=== PATIENT | male | born 1955 | race Caucasian/White ===

== ENCOUNTER → 2016-04-23 20:13 | Outpatient (CLI) | payer BC | END | disposition home or self-care (01) | LOC: D.SLEEP 04-21 20:00 | DX: G47.33 Obstructive sleep apnea (adult) (pediatric) (principal) ==

== ENCOUNTER → 2016-04-27 19:53 | Outpatient (CLI) | payer BC | END | disposition home or self-care (01) | LOC: D.SLEEP 19:53 | DX: G47.33 Obstructive sleep apnea (adult) (pediatric) (principal) ==

== ENCOUNTER 2016-05-02 07:13 | Emergency (ER) | payer BC ==
[2016-05-02 08:01] LABS: BASOPHILS 1.2 % (0.0-2.0); EOSINOPHILS 4.4 % (0-7); HEMATOCRIT 42.7 % (42.0-54.0); HEMOGLOBIN 14.8 g/dL (13.5-17.5); IMMATURE GRANULOCYTES 0.2 % (0-5); LYMPHOCYTES 23.7 % (15-50); MCH 30.5 pg (26.0-34.0); MCHC 34.7 g/dL (31.0-37.0); MCV 87.9 fL (80.0-100.0); MEAN PLATELET VOLUME 9.9 fL (7.4-10.4); MONOCYTES 6.1 % (2-11); NEUTROPHILS 64.4 % (40-80); PLATELET COUNT 170 10x3/uL (130-400); RBC 4.86 10x6/uL (4.20-6.10); RDW 12.9 % (11.5-14.5); WBC 4.3 10x3/uL (4.8-10.8)
[2016-05-02 08:28] LABS: ALBUMIN 3.6 g/dL (3.4-5.0); ALKALINE PHOSPHATASE 44 U/L (46-116); ALT (SGPT) 38 U/L (10-68); CALC OSMOLALITY 274 mosm/kg (275-300); CALCIUM 8.5 mg/dL (8.5-10.1); CARBON DIOXIDE 25.3 mmol/L (21.0-32.0); CHLORIDE - SERUM 102 mmol/L (98-107); CREATININE - SERUM 0.8 mg/dL (0.6-1.3); GLUCOSE 118 mg/dL (74-106); PROTEIN - SERUM 6.6 g/dL (6.4-8.2); SODIUM 136 mmol/L (136-145); UREA NITROGEN 17 mg/dL (7-18); eGFR NON AFRICAN AMERICAN > 90 mL/min (90-120)
[2016-05-02 08:38] LABS: CKMB 0.7 U/L (0.0-3.6); CREATINE KINASE 56 UL (21-232); TROPONIN-I < 0.017 ng/mL (0.000-0.060)
== END 2016-05-02 08:47 | disposition home or self-care (01) ==
LOC: D.ER 07:13
PROVIDERS: Emergency Medicine
DX: I49.9 Cardiac arrhythmia, unspecified (principal); G47.30 Sleep apnea, unspecified; I10 Essential (primary) hypertension

== ENCOUNTER 2016-05-06 14:54 | Emergency (ER) | payer BC | END 2016-05-06 16:25 | disposition home or self-care (01) | LOC: D.ER 14:54 | DX: R07.89 Other chest pain (principal); R00.2 Palpitations; I10 Essential (primary) hypertension; G47.33 Obstructive sleep apnea (adult) (pediatric); R07.9 Chest pain, unspecified ==

== ENCOUNTER 2016-07-08 05:38 | Emergency (ER) | payer BC ==
[2016-07-08 06:00] LABS: BASOPHILS 0.6 % (0.0-2.0); EOSINOPHILS 4.5 % (0-7); HEMATOCRIT 46.8 % (42.0-54.0); HEMOGLOBIN 16.2 g/dL (13.5-17.5); IMMATURE GRANULOCYTES 0.4 % (0-5); LYMPHOCYTES 29.6 % (15-50); MCH 30.5 pg (26.0-34.0); MCHC 34.6 g/dL (31.0-37.0); MCV 88.1 fL (80.0-100.0); MEAN PLATELET VOLUME 10.2 fL (7.4-10.4); MONOCYTES 5.9 % (2-11); PLATELET COUNT 151 10x3/uL (130-400); RBC 5.31 10x6/uL (4.20-6.10); RDW 13.8 % (11.5-14.5); WBC 4.9 10x3/uL (4.8-10.8)
[2016-07-08 06:36] LABS: ALBUMIN 3.9 g/dL (3.4-5.0); ALKALINE PHOSPHATASE 66 U/L (46-116); ALT (SGPT) 48 U/L (10-68); BILIRUBIN - TOTAL 0.64 mg/dL (0.2-1.3); CALC OSMOLALITY 282 mosm/kg (275-300); CALCIUM 8.4 mg/dL (8.5-10.1); CARBON DIOXIDE 26.2 mmol/L (21.0-32.0); CHLORIDE - SERUM 102 mmol/L (98-107); CREATINE KINASE 134 UL (21-232); CREATININE - SERUM 0.8 mg/dL (0.6-1.3); GLUCOSE 163 mg/dL (74-106); MAGNESIUM - SERUM 2.1 mg/dL (1.8-2.4); POTASSIUM - SERUM 4.2 mmol/L (3.5-5.1); PROTEIN - SERUM 7.7 g/dL (6.4-8.2); SODIUM 138 mmol/L (136-145); T4 THYROXINE 5.3 ug/dL (4.7-13.3); THYROID STIMULATING HORMONE 2.36 uIU/mL (0.36-3.74); UREA NITROGEN 22 mg/dL (7-18); eGFR NON AFRICAN AMERICAN > 90 mL/min (90-120)
[2016-07-08 06:39] LABS: TROPONIN-I < 0.017 ng/mL (0.000-0.060)
== END 2016-07-08 07:07 | disposition home or self-care (01) ==
LOC: D.ER 05:38
PROVIDERS: Emergency Medicine
DX: R00.2 Palpitations (principal); I10 Essential (primary) hypertension; G47.33 Obstructive sleep apnea (adult) (pediatric); I48.91 Unspecified atrial fibrillation

== ENCOUNTER 2016-10-24 02:37 | Emergency (ER) | payer BC ==
[2016-10-24 03:01] LABS: EOSINOPHILS 2.5 % (0-7); HEMATOCRIT 44.2 % (42.0-54.0); HEMOGLOBIN 15.2 g/dL (13.5-17.5); IMMATURE GRANULOCYTES 0.6 % (0-5); LYMPHOCYTES 33.1 % (15-50); MCH 30.3 pg (26.0-34.0); MCHC 34.4 g/dL (31.0-37.0); MCV 88.2 fL (80.0-100.0); MEAN PLATELET VOLUME 9.9 fL (7.4-10.4); MONOCYTES 9.7 % (2-11); NEUTROPHILS 53.1 % (40-80); PLATELET COUNT 147 10x3/uL (130-400); RBC 5.01 10x6/uL (4.20-6.10); RDW 13.4 % (11.5-14.5); WBC 5.1 10x3/uL (4.8-10.8)
[2016-10-24 03:18] LABS: ALBUMIN 3.7 g/dL (3.4-5.0); ALKALINE PHOSPHATASE 54 U/L (46-116); ALT (SGPT) 42 U/L (10-68); BILIRUBIN - TOTAL 0.54 mg/dL (0.2-1.3); CALC OSMOLALITY 279 mosm/kg (275-300); CALCIUM 8.4 mg/dL (8.5-10.1); CARBON DIOXIDE 26.6 mmol/L (21.0-32.0); CHLORIDE - SERUM 102 mmol/L (98-107); CREATININE - SERUM 0.7 mg/dL (0.6-1.3); POTASSIUM - SERUM 4.1 mmol/L (3.5-5.1); PROTEIN - SERUM 7.2 g/dL (6.4-8.2); SODIUM 138 mmol/L (136-145); UREA NITROGEN 25 mg/dL (7-18); eGFR NON AFRICAN AMERICAN > 90 mL/min (90-120)
[2016-10-24 03:21] LABS: GLUCOSE 106 mg/dL (74-106)
[2016-10-24 03:24] LABS: MAGNESIUM - SERUM 2.2 mg/dL (1.8-2.4)
[2016-10-24 03:30] LABS: CHOLESTEROL, TOTAL 190 mg/dL (0-200); CKMB 1.1 U/L (0.0-3.6); CREATINE KINASE 134 UL (21-232); HDL CHOLESTEROL 48 mg/dL (32-96); LDL CHOLESTEROL 124 mg/dL (0-100); LDL-HDL RATIO 2.6 ratio (1.5-3.5); TRIGLYCERIDE 90 mg/dL (30-200); TROPONIN-I < 0.017 ng/mL (0.000-0.060)
[2016-10-24 03:50] LABS: APPEARANCE CLEAR (CLEAR); BILIRUBIN NEGATIVE (NEGATIVE); COLOR YELLOW (YELLOW); GLUCOSE NEGATIVE (NEGATIVE); KETONE NEGATIVE (NEGATIVE); LEUKOCYTE ESTERASE NEGATIVE (NEGATIVE); NITRITE NEGATIVE (NEGATIVE); PROTEIN NEGATIVE (NEGATIVE); SPECIFIC GRAVITY 1.005 (1.005-1.020); UROBILINOGEN NORMAL (NORMAL)
== END 2016-10-24 06:00 | disposition home or self-care (01) ==
LOC: D.ER 02:37
PROVIDERS: Emergency Medicine
DX: R10.9 Unspecified abdominal pain (principal); N28.1 Cyst of kidney, acquired; I10 Essential (primary) hypertension; G47.30 Sleep apnea, unspecified

== ENCOUNTER 2017-03-11 03:12 | Emergency (ER) | payer BC ==
[2017-03-11 04:13] LABS: CREATINE KINASE 156 UL (21-232); TROPONIN-I < 0.017 ng/mL (0.000-0.060)
[2017-03-11 04:46] LABS: BASOPHILS 0.6 % (0-2); EOSINOPHILS 3.1 % (0-7); HEMATOCRIT 45.3 % (42.0-54.0); HEMOGLOBIN 15.8 g/dL (13.5-17.5); IMMATURE GRANULOCYTES 0.4 % (0-5); LYMPHOCYTES 27.5 % (15-50); MCH 30.6 pg (26.0-34.0); MCHC 34.9 g/dL (31.0-37.0); MCV 87.8 fL (80.0-100.0); MEAN PLATELET VOLUME 10.1 fL (7.4-10.4); NEUTROPHILS 59.4 % (40-80); PLATELET COUNT 175 10x3/uL (130-400); RBC 5.16 10x6/uL (4.20-6.10); RDW 13.1 % (11.5-14.5); WBC 5.4 10x3/uL (4.8-10.8)
[2017-03-11 04:50] LABS: ALBUMIN 3.9 g/dL (3.4-5.0); ALKALINE PHOSPHATASE 52 U/L (46-116); ALT (SGPT) 43 U/L (10-68); BILIRUBIN - TOTAL 0.42 mg/dL (0.2-1.3); CALC OSMOLALITY 281 mosm/kg (275-300); CALCIUM 8.6 mg/dL (8.5-10.1); CARBON DIOXIDE 29.8 mmol/L (21.0-32.0); CHLORIDE - SERUM 101 mmol/L (98-107); CREATININE - SERUM 0.9 mg/dL (0.6-1.3); GLUCOSE 108 mg/dL (74-106); PROTEIN - SERUM 7.2 g/dL (6.4-8.2); SODIUM 139 mmol/L (136-145); UREA NITROGEN 21 mg/dL (7-18); eGFR NON AFRICAN AMERICAN > 90 mL/min (90-120)
== END 2017-03-11 05:24 | disposition home or self-care (01) ==
LOC: D.ER 03:12
PROVIDERS: Emergency Medicine
DX: R00.2 Palpitations (principal); I10 Essential (primary) hypertension

== ENCOUNTER → 2017-04-02 08:33 | Outpatient (CLI) | payer BC | END | disposition home or self-care (01) | LOC: D.RAD 03-26 08:00 | DX: K59.00 Constipation, unspecified (principal) ==

== ENCOUNTER → 2017-10-25 08:37 | Outpatient (CLI) | payer BC | END | disposition home or self-care (01) | LOC: D.US 08:37 | DX: R10.816 Epigastric abdominal tenderness (principal) ==

== ENCOUNTER 2018-01-30 18:59 | Emergency (ER) | payer BC ==
[~2018-01-30] VITALS: Ht 177.8 cm; Wt 95.3 kg
[2018-01-30 19:24] VITALS: Ht 177.8 cm; Wt 95.3 kg
[2018-01-30] MEDS ORDERED: MICARDIS80 MG PO (19:25)
[2018-01-30] MEDS ORDERED: CATAPRES0.2 MG PO (19:25)
[2018-01-30] MEDS ORDERED: TOPROL XL25 MG PO (19:25)
[2018-01-30] MEDS ORDERED: COREG 3.1253.125 MG (19:25)
[2018-01-30] MEDS ORDERED: NITROQUICK0.4 MG SL (19:25)
[2018-01-30] MEDS ORDERED: ASPIRIN81 MG PO (19:25)
[2018-01-30] MEDS ORDERED: LYRICA75 MG PO (19:26)
[2018-01-30] MEDS ORDERED: TORADOL10 MG PO (20:08)
[2018-01-30 21:17] VITALS: BP 160/87
== END 2018-01-30 21:18 | disposition home or self-care (01) ==
LOC: D.ER 18:59
DX: S49.91XA Unspecified injury of right shoulder and upper arm, initial encounter (principal); W18.31XA Fall on same level due to stepping on an object, initial encounter; Y93.89 Activity, other specified; Y92.89 Other specified places as the place of occurrence of the external cause

== ENCOUNTER 2018-04-18 22:35 | Observation (INO) | payer BC ==
[~2018-04-18] VITALS: Ht 177.8 cm; Wt 95.5 kg
--- NOTE | ~2018-04-18 | HEMODYNAMI ---
PATIENT:DAISY ROCKWELL MEDICAL RECORD: [id number] : 59 LOCATION:[facility] ADMISSION DATE: 04/19/18 Generatedon:04/19/201812:20 Patient name: DAISY ROCKWELL Patient #: [id number] SSN: : 1955 Date of study: 04/19/2018 Page: Of Hemodynamic Procedure Report Patient Data Patient Demographics Procedure consent was obtained First Name: DAISY Gender: Male Last Name: MOIZ : 1955 Middle Initial: RAY Age: 62 year(s) Patient #: [id number] Race: Unknown Additional ID: [id number] Contact details [address]: [address] [place] [address] State: [place] City: [place] Zip code: [address] Past Medical History Allergies Allergen Reaction Date Comments Reported Statins 04/19/2018 Admission Admission Data Admission Date: 04/19/2018 Admission Time: 2:13 Room #: [facility] Lab Results Lab Result Date: 04/19/2018 Lab Result Time: 0:00 Biochemistry Name Units Result Min Max BUN mg/dl 20 --(----)*- 7 18 Creatinine mg/dl 0.8 --(-*--)-- 0.6 1.3 CBC Name Units Result Min Max Hemoglobin g/dl 16.4 --(--*-)-- 13.5 17.5 Procedure Procedure Types Cath Procedure Diagnostic Procedure LHC LHC w/Coronaries Procedure Description Procedure Date Procedure Date: 04/19/2018 Procedure Start Time: 12:06 Procedure End Time: 12:15 Procedure Staff Name Function Roslyn Jose RT Scrub Brant Melendez RN Nurse Sven Nino MD Performing Physician Lonny Ambrose RT Monitor Procedure Data Cath Procedure Fluoroscopy Diagnostic fluoroscopy Total fluoroscopy Time: 1.7 time: 1.7 min min Diagnostic fluoroscopy Total fluoroscopy dose: dose: 211.99 mGy 211.99 mGy Contrast Material Contrast Material Type Amount (ml) Isovue 300 50 Entry Location Entry Primary Successful Side Size Upsize Upsize Entry Closure López ccessful Closure Location (Fr) 1 (Fr) 2 (Fr) Remarks Device Remarks Radial Right 6 Fr Mechanical artery Short Compression Diagnostic catheters Device Type Used For End Catheter Placement DIAGNOSTIC Orange 110cm 5 LV Angiography Fr catheter ([id number]) Procedure Complications No complications Procedure Medications Medication Administration Route Dosage Oxygen etCO2 Nasal cannula 2 l/min Lidocaine 2% added to field 20 Heparin Flush Bag added to field 2 bags (1000units/500ml NS) 0.9% NaCl I.V. 100 ml/hr Radial Cocktail I.A. 1 syringe (Verapomil 2mg/Nitro 400mcg/Heparin 1500units) Versed I.V. 2 mg Fentanyl I.V. 100 mcg Versed I.V. 1 mg Fentanyl I.V. 50 mcg Hemodynamics Rest HGB: 16.4 (g/dl) Heart Rate: 59 (bpm) Snapshots Pre Cath Intra NCS Post Cath Vital Signs Time Heart Resp SPO2 etCO2 NIBP (mmHg) Rhythm Pain Sedation Rate (ipm) (%) (mmHg) Status Level (bpm) 11:46:39 62 23 98 0 148/83(112) NSR 0 (11) 10(A) , No pain 11:50:58 55 18 98 0 146/90(137) NSR 0 (11) 10(A) , No pain 11:55:18 58 24 99 0 141/85(126) NSR 0 (11) 10(A) , No pain 11:59:36 62 16 96 0 124/78(96) NSR 0 (11) 10(A) , No pain 12:03:48 66 32 94 0 107/75(96) NSR 0 (11) 10(A) , No pain 12:08:00 60 13 97 0 117/72(100) NSR 0 (11) 9(A) , No pain 12:12:12 63 12 96 0 107/62(88) NSR 0 (11) 10(A) , No pain Medications Time Medication Route Dose Verified Delivered Reason Notes Effectiveness by by 11:54:40 Oxygen etCO2 2 l/min Sven Guo used for Nasal Mica Melendez RN procedure cannula 11:54:48 Lidocaine 2% added 20ml Sven Machuca used for to vial Mica Nino MD procedure field 11:54:57 Heparin Flush added 2 bags Sven Machuca used for Bag to Mica Nino MD procedure (1000units/500ml field NS) 11:55:06 0.9% NaCl I.V. 100 Sven Guo Per ml/hr Miac Melendez RN physician 12:05:12 Versed I.V. 2 mg Sven Guo for sedation Mica Melendez RN 12:05:19 Fentanyl I.V. 100 mcg Sven Guo for sedation Mica Melendez RN 12:08:01 Radial Cocktail I.A. 1 Sven Machuca for (Verapomil syringe Mica Nino MD vasodilation 2mg/Nitro 400mcg/Hepari 12:09:16 Versed I.V. 1 mg Sven Guo for sedation Mica Melendez RN 12:10:21 Fentanyl I.V. 50 mcg Sven Guo for sedation Mica Melendez RN Procedure Log Time Note 11:27:57 Time tracking: Regular hours (M-F 7:00 - 5:00) 11:28:01 Plan of Care:Hemodynamics will remain stable., Cardiac rhythm will remain stable., Comfort level will be maintained., Respiratory function will remain adequate., Patient/ family verbilizes understanding of procedure., Procedure tolerated without complication., Recovers from procedure without complications.. 11:32:31 Roslyn Counts RT(R) sent for patient. Start room use. 11:43:34 Patient received from ED to CCL 3 Alert and oriented. Tansferred to table in Supine position. 11:43:35 Correct patient and procedure confirmed by team. 11:43:35 Warm blankets applied, and albin hugger turned on for patient comfort. 11:43:36 Signed procedure consent form obtained from patient. 11:43:37 ECG and BP/O2 sat monitors applied to patient. 11:45:24 Vital chart was started 11:45:25 Full Disclosure recording started 11:54:40 Oxygen 2 l/min etCO2 Nasal cannula was administered by Brant Melendez RN; used for procedure; 11:54:48 Lidocaine 2% 20ml vial added to field was administered by Sven Nino MD; used for procedure; 11:54:57 Heparin Flush Bag (1000units/500ml NS) 2 bags added to field was administered by Sven Nino MD; used for procedure; 11:55:06 0.9% NaCl 100 ml/hr I.V. was administered by Brant Melendez RN; Per physician; 11:56:38 Baseline sample Acquired. 11:56:41 Rhythm: sinus rhythm 11:56:53 H&P Date Dictated: 04/19/2018 Within 30 days and on chart.. 11:56:54 Pre-op teaching completed and patient verbalized understanding. 11:56:54 Pre-procedure instructions explained to patient. 11:56:56 Family unavailable. 11:56:58 Patient NPO since Midnight. 11:57:05 Patient allergic to Statins 11:57:22 Is the patient allergic to Iodine/contrast media? No. 11:57:27 Is patient on blood thinner?Yes 11:57:31 ACC The patient was administered the following blood thiners within the last 24 hours: ACCPlavix 11:57:51 pt loaded at 0310 with plavix 11:57:53 Patient diabetic? No. 11:57:57 If diabetic: On Metformin? No 11:57:58 ----Pre-sedation anethsthesia assessment.---- 11:58:00 Previous problem with sedation/anesthesia? No ? 11:58:01 Snore? Yes 11:58:03 Sleep apnea? Yes 11:58:04 Deviated septum? No 11:58:05 Opens mouth fully? Yes 11:58:07 Sticks out tongue? Yes 11:58:09 Airway obstruction? No ? 11:58:11 Dentures? No ? 11:58:14 Pre procedure: right dorsailis pedis pulse 2+ Normal; easily identifiable; not easily obliterated 11:58:17 Modified Troy's test Ulnar < 7 seconds 11:58:21 Patient pain scale 0/10 ?. 11:58:26 IV patent on arrival in left hand with 0.9% NaCl at 10ml/hr. 12:00:43 Lab Result : Hemoglobin 16.4 g/dl 12:00:43 Lab Result : Creatinine 0.8 mg/dl 12:00:43 Lab Result : BUN 20 mg/dl 12:00:46 Zero performed for pressure channel P1 12:00:52 Lab results completed and on chart. 12:01:02 Right Radial & Right Groin area was prepped with chlora-prep and draped in sterile fashion 12:01:03 Alarms reviewed by R. N. 12:01:04 Physician paged 12:01:04 Sharps counted by scrub and verified by R.N. 12:03:51 Use device set Radial Dx or PCI 12:03:52 ACIST Syringe (67510) opened to sterile field. 12:03:53 Bag Decanter (2002S) opened to sterile field. 12:03:53 Medline Cath Pack ([id number]) opened to sterile field. 12:03:54 ACIST Hand Control (82978) opened to sterile field. 12:03:54 DIAGNOSTIC WIRE .035 260cm J wire (227027) opened to sterile field. 12:03:55 Tegaderm 4 x 4 (1626W) opened to sterile field. 12:03:55 ACIST Manifold (94509) opened to sterile field. 12:03:58 NEEDLE Cook 21G 4cm Radial (M53026) opened to sterile field. 12:03:59 TR BAND Standard ([id number]) opened to sterile field. 12:04:01 SHEATH 6FR Slender (80-1060) opened to sterile field. 12:04:23 --------ALL STOP TIME OUT------ 12:04:25 Final Timeout: patient, procedure, and site verified with staff and physician. All members of the team are in agreement. 12:04:26 Right Radial & Right Groin site verified by team. 12:04:28 Physical assessment completed. ASA score P 2 - A patient with mild systemic disease as per Sven Nino MD. 12:04:32 Sedation plan: IV Moderate Sedation Medication:Versed, Fentanyl 12:05:12 Versed 2 mg I.V. was administered by Brant Melendez RN; for sedation; 12:05:19 Fentanyl 100 mcg I.V. was administered by Brant Melendez RN; for sedation; 12:06:47 Procedure started. 12:06:59 Local anesthetic to right radial artery with Lidocaine 2% by Sven Nino MD.INITIAL ACCESS ONLY 12:07:22 A 6 Fr Short sheath was inserted into the Right Radial artery 12:07:41 A DIAGNOSTIC Orange 110cm 5 Fr catheter ([id number]) was advanced over the wire and used for LV Angiography. 12:08:01 Radial Cocktail (Verapomil 2mg/Nitro 400mcg/Heparin 1500units) 1 syringe I.A. was administered by Sven Nino MD; for vasodilation; 12:08:28 LV angiography performed. 12:08:34 EF : 55 % 12:08:37 LV gram done using LORENZO 12:09:02 RCA angiography performed. 12:09:05 LCA angiography performed. 12:09:16 Versed 1 mg I.V. was administered by Brant Melendez RN; for sedation; 12:10:12 Catheter exchanged over wire. 12:10:21 Fentanyl 50 mcg I.V. was administered by Brant Melendez RN; for sedation; 12:10:48 GUIDE 6FR XBLAD 3.5 catheter ([id number]) opened to sterile field. 12:11:35 LCA angiography performed. 12:11:39 Catheter removed. 12:11:45 Contrast amount:Isovue 300 50ml. 12:11:53 Sheath removed intact; hemostasis achieved with Mechanical Compression to the Right Radial artery. 12:11:56 Procedure ended.(Physican Out) 12:13:05 Fluoroscopy time 01.70 minutes. 12:13:14 Fluoroscopy dose: 211.99 mGy 12:13:14 Flurop Dose total: 211.99 12:13:17 Sharps counted by scrub and verified by R.N. 12:13:19 TR band inflated with 10cc of air. 12:13:25 Post right radial artery:stable 12:13:27 Post Procedure Pulses reassessed and unchanged 12:13:32 Post procedure: right radial pulse 2+ Normal; easily identifiable; not easily obliterated. 12:13:34 Post procedure rhythm: sinus rhythm 12:13:36 Post procedure instruction explained to patient.Patient verbalizes understanding. 12:13:37 Procedure and supply charges have been captured, reviewed, submitted and are correct. 12:14:51 Procedure Complication : No complications 12:14:54 Vital chart was stopped 12:14:55 See physician's report for complete and final results. 12:14:59 Report given to Pre/Post Procedure Room. 12:15:03 Patient transfered to Pre/Post Procedure Room with Stretcher. 12:15:05 Full Disclosure recording stopped 12:15:05 Procedure ended. 12:15:08 End room use (Document Last) Device Usage Item Name Manufacture Quantity Catalog Hospital Part Current Minimal Lot# / Number Charge Number Stock Stock Serial# Code ACIST Acist 1 08651 709803 950065 039836 20 Syringe Medical (93768) Systems Inc Medline Medline 1 [id number] 562351 61391 081721 5 Cath Pack ([id number]) Bag Microtek 1 2001S 310440 61802 813859 5 Decanter Medical Inc. (2001S) DIAGNOSTIC [place] 1 617130 139889 294155 644428 30 WIRE .035 260cm J wire (414257) ACIST Hand Acist 1 85012 266823 679727 824623 5 Control Medical (09968) Systems Inc ACIST Acist 1 32377 095770 065054 803185 5 Manifold Medical (95720) Systems Inc Tegaderm 4 3M 1 1626W 316855 509859 723215 5 x 4 (1626W) NEEDLE Cook Cook Medical 1 V47109 471513 007149 287970 5 21G 4cm Radial (O85534) TR BAND Terumo 1 [id number] 098058 269235 408147 40 Standard (OCQ66SYO) SHEATH 6FR Terumo 1 [id number] 607000 028839 463775 5 Slender (80-1060) DIAGNOSTIC Terumo 1 40-3863 824241 239845 390076 5 Orange 110cm 5 Fr catheter (706753) GUIDE 6FR Cardinal 1 [id number] 973373 135667 496568 10 XBLAD 3.5 Health catheter (83247624) Signature Audit [place] Stage Time Signature Unsigned Intra-Procedure 04/19/2018 Roslyn 12:20:17 PM Counts RT(R) Signatures Monitor : Lonny Ambrose RT Signature : Date : Time : [facility] [address] [place] [address]
[~2018-04-18 22:35] MED LIST: ASPIRIN81 MG PO; CATAPRES0.2 MG PO; COREG 3.1253.125 MG; LYRICA75 MG PO; MICARDIS80 MG PO; NITROQUICK0.4 MG SL; TOPROL XL25 MG PO; TORADOL10 MG PO
[2018-04-18 23:22] LABS: BASOPHILS 0.1 % (0-2); EOSINOPHILS 0.1 % (0-7); IMMATURE GRANULOCYTES 0.4 % (0-5); MCH 30.4 pg (26.0-34.0); MCHC 35.6 g/dL (31.0-37.0); MCV 85.6 fL (80.0-100.0); MONOCYTES 2.9 % (2-11); NEUTROPHILS 89.5 % (40-80); RBC 5.26 10x6/uL (4.20-6.10); RDW 13.5 % (11.5-14.5); WBC 8.3 10x3/uL (4.8-10.8)
[2018-04-18 23:33] LABS: PLATELET COUNT 219 10x3/uL (130-400)
[2018-04-19] VITALS (9 sets, daily range): BP systolic 128–176; BP diastolic 79–101; Ht 177.8 cm; Wt 95.5 kg
[2018-04-19 00:55] LABS: ALBUMIN 3.7 g/dL (3.4-5.0); ALKALINE PHOSPHATASE 53 U/L (46-116); ALT (SGPT) 47 U/L (10-68); BILIRUBIN - TOTAL 0.43 mg/dL (0.2-1.3); CALC OSMOLALITY 283 mosm/kg (275-300); CALCIUM 8.7 mg/dL (8.5-10.1); CARBON DIOXIDE 25.7 mmol/L (21.0-32.0); CHLORIDE - SERUM 101 mmol/L (98-107); CREATININE - SERUM 0.9 mg/dL (0.6-1.3); POTASSIUM - SERUM 4.1 mmol/L (3.5-5.1); PROTEIN - SERUM 7.8 g/dL (6.4-8.2); SODIUM 138 mmol/L (136-145); UREA NITROGEN 19 mg/dL (7-18); eGFR NON AFRICAN AMERICAN > 90 mL/min (90-120)
[2018-04-19 00:58] LABS: GLUCOSE 213 mg/dL (74-106)
--- NOTE | 2018-04-19 01:00 | NUR ---
PT STATES STILL FEELS IF HIS HEART IS "RUNNING AWAY"- OR "TOO FAST"- PT GIVEN LOPRESSOR 5MG IV.
[2018-04-19 01:03] LABS: CREATINE KINASE 91 UL (21-232)
--- NOTE | 2018-04-19 01:30 | NUR ---
PT STATES "FEELING SOME BETTER NOW"- HR DOWN TO 77. UNABLE TO URINATE YET- STATES "I JUST WENT A LITTLE WHILE AGO".
--- NOTE | 2018-04-19 01:31 | NUR ---
PT GIVEN NITRO.
--- NOTE | 2018-04-19 01:55 | NUR ---
PT STATES IS FEELING "MUCH BETTER"- DR DOWNEN TO ROOM TO TALK TO PATIENT.
--- NOTE | 2018-04-19 02:37 | NUR ---
PT TO BE ER HOLD. EXPLAINED TO PATIENT THE PLAN. IS AWARE HE IS NPO. MOVED TO ROOM E-14- REPORT TO LOIS BAXTER RN.
[2018-04-19 03:24] LABS: APPEARANCE CLEAR (CLEAR); COLOR YELLOW (YELLOW)
[2018-04-19 03:25] LABS: BILIRUBIN NEGATIVE (NEGATIVE); GLUCOSE 1000 mg/dL (NEGATIVE); KETONE NEGATIVE (NEGATIVE); NITRITE NEGATIVE (NEGATIVE); PROTEIN NEGATIVE (NEGATIVE); SPECIFIC GRAVITY 1.005 (1.005-1.020); UROBILINOGEN NORMAL (NORMAL)
[2018-04-19 03:28] LABS: UDS - AMPHET NEGATIVE QUAL (NEGATIVE); UDS - BARB NEGATIVE QUAL (NEGATIVE); UDS - BENZO NEGATIVE QUAL (NEGATIVE); UDS - COCAINE NEGATIVE QUAL (NEGATIVE); UDS - OPIATE NEGATIVE QUAL (NEGATIVE); UDS - PCP NEGATIVE QUAL (NEGATIVE); UDS - THC NEGATIVE QUAL (NEGATIVE)
--- NOTE | 2018-04-19 03:49 | NUR ---
GAVE OTHER 300MG PLAVIX. WILL FREEDOM POC.
--- NOTE | 2018-04-19 03:53 | NUR ---
A/OX4. BREATHING EVEN AND UNLABORED. DENIES NEEDS AT THIS TIME. WILL CONTINUE POC.
[2018-04-19 05:08] LABS: BASOPHILS 0.1 % (0-2); EOSINOPHILS 0 % (0-7); HEMOGLOBIN 16.4 g/dL (13.5-17.5); IMMATURE GRANULOCYTES 0.2 % (0-5); LYMPHOCYTES 8.4 % (15-50); MCH 30.7 pg (26.0-34.0); MCHC 35.7 g/dL (31.0-37.0); MEAN PLATELET VOLUME 9.4 fL (7.4-10.4); MONOCYTES 4.8 % (2-11); NEUTROPHILS 86.5 % (40-80); PLATELET COUNT 188 10x3/uL (130-400); RBC 5.35 10x6/uL (4.20-6.10); RDW 13.4 % (11.5-14.5)
--- NOTE | 2018-04-19 05:12 | NUR ---
PT STATES HE HAS A CPAP AT HOME FOR SLEEP APNEA. MAY BE BEIFICIAL FOR PT TO HAVE AT HOSPITAL IF STAYING A WHILE SO THAT HE MAY REST WELL. WILL CONTINUE POC.
[2018-04-19 05:15] LABS: WBC 12.7 10x3/uL (4.8-10.8)
[2018-04-19 05:55] LABS: CALC OSMOLALITY 278 mosm/kg (275-300); CALCIUM 8.6 mg/dL (8.5-10.1); CARBON DIOXIDE 25.6 mmol/L (21.0-32.0); CHLORIDE - SERUM 103 mmol/L (98-107); CKMB 2.2 U/L (0.0-3.6); CREATINE KINASE 80 UL (21-232); CREATININE - SERUM 0.8 mg/dL (0.6-1.3); GLUCOSE 166 mg/dL (74-106); POTASSIUM - SERUM 4.2 mmol/L (3.5-5.1); SODIUM 136 mmol/L (136-145); UREA NITROGEN 20 mg/dL (7-18); eGFR NON AFRICAN AMERICAN > 90 mL/min (90-120)
[2018-04-19 06:00] LABS: TROPONIN-I 0.199 ng/mL (0.000-0.060)
--- NOTE | 2018-04-19 07:05 | NUR ---
ASSUMED CARE OF PATIENT AT THIS TIME. PT IN NO ACUTE DISTRESS. VSS ON CUSTOMER SALES SERVICE MANAGER. RESTING QUIETLY WITH EYES CLOSED, RESPIRATIONS EVEN AND UNLABORED. WILL CONTINUE TO MONITOR FOR CHANGES.
--- NOTE | 2018-04-19 08:45 | NUR ---
PT STABLE, CALL LIGHT WITHIN REACH, DENIES NEEDS, WILL CONTINUE TO MONITOR.
--- NOTE | 2018-04-19 10:10 | NUR ---
PREOP FROM DISPATCH CLERK COMPLETE, DENIES NEEDS, WILL CONTINUE TO MONITOR.
--- NOTE | 2018-04-19 11:34 | NUR ---
WANDA MORTAR MAKER HERE TO TAKE PT TO MORTAR MAKER. PT STABLE AT THIS TIME.
--- NOTE | 2018-04-19 12:13 | CN ---
PATIENT NAME:DAISY ROCKWELL MEDICAL RECORD: [id number] : 59 LOCATION:[id number] ADMIT DATE: 04/19/18 ACCOUNT: [id number] CONSULTING PHYSICIAN: MARY HUGHES MD REFERRING PHYSICIAN: MARY HUGHES MD DATE OF CONSULTATION: 04/19/2018 DIAGNOSES: 1. Chest pain. 2. Elevated troponin. 3. Abnormal ECG. 4. Hyperlipidemia. 5. Hypertension. HISTORY OF PRESENT ILLNESS: This is a gentleman with cardiac risk factors of hypertension, hyperlipidemia, who has not had a history of ischemic heart disease, who got a steroid shot in his shoulders. After this, he had a tachycardia, racing heart, and then developed chest pressure, presents to the Emergency Room. His EKG shows ST-T abnormalities anteriorly. His troponin is elevated. PHYSICAL EXAMINATION: GENERAL APPEARANCE: Well-nourished, well-developed, appears stated age. Level of distress, comfortable. PSYCHIATRIC: Mental status, alert, normal affect. Orientation, oriented to time, place and person. EYES: Lids and conjunctiva, noninjected. No discharge, no pallor. ENT: Lips, teeth, gums, normal dentition. Oropharynx, no cyanosis, no pallor. NECK: Carotid arteries, bilateral normal upstroke, no bruits, no thrills. JUGULAR VEINS: No jugular venous pressure or distention. CERVICAL LYMPH NODES: Nontender, nonenlarged. THYROID: Not enlarged. Nontender. No nodules. LUNGS: Respiratory effort, unlabored. CHEST: Normal curvature. No thoracic deformity. No chest wall tenderness. Percussion, resonant. Auscultation, clear. No wheezes, no rales, no rhonchi. CARDIOVASCULAR: Precordial exam, nondisplaced. No heaves or pericardial thrills. Rate and rhythm, regular. Heart sounds, normal S1, normal S2. No S3, no gallop, no rub. Systolic murmur, not heard. Diastolic murmur, not heard. EXTREMITIES: No cyanosis, no edema. Peripheral pulses, full and equal in all extremities, except as noted. No bruits appreciated. ABDOMEN: Soft, nondistended. Normal aorta. No bruit. Nontender. No masses. Liver, nontender, no hepatomegaly. Spleen, nontender, no splenomegaly. MUSCULOSKELETAL: No joint tenderness. No joint swelling. No erythema. NEUROLOGICAL: Normal gait, normal strength, normal tone. SKIN: Warm and dry. OVERALL IMPRESSION: Elevated troponin, chest discomfort, abnormal ECG, most likely he does have hemodynamically significant coronary artery disease. We will proceed with coronary angiography. Further care depends upon findings of the angiography. TRANSINT:[id number] Voice Confirmation ID: [id number] DOCUMENT ID: [id number] CONSULT REPORT [id number] DAISY ROCKWELL, MARY DEL VALLE at 1213 CC: [id number] DICTATION DATE: 04/19/18 09 STORE ASSISTANT: 04/19/18 1206 ADM IN [place] [id number] [place] [id number]
--- NOTE | 2018-04-19 12:30 | NUR ---
PT RECEIVED VIA STRETCHER FROM DISTRIBUTION OPERATIONS MANAGER FOR RECOVERY. PT DROWSY BUT AROUSES TO VERBAL STIMULI. HR SINUS PEYMAN RATE 58, BP 118/71, O2 98 ON 2L/NC. TR BAND TO R WRIST IN PLACE, NO BLEEDING OR HEMATOMA NOTED. PT DENIES PAIN OR NAUSEA. CALL LIGHT IN REACH.
--- NOTE | 2018-04-19 12:45 | NUR ---
PT RESTING QUIETLY W EYES CLOSED. TR BAND AND IMMOBILER IN PLACE, NO BLEEDING OR HEMATOMA NOTED. DRESSING REMAINS CDI. CALL LIGHT IN REACH.HR NSR RATE 61, BP 107/71.
--- NOTE | 2018-04-19 13:15 | NUR ---
TR BAND IN PLACE, NO BLEEDING OR SWELLING NOTED. CAP REFILL REMAINS BRISK. EXTREMITY WARM AND PINK. CALL LIGHT IN REACH, DENIES NEEDS AT THIS TIME.
--- NOTE | 2018-04-19 13:29 | OP ---
PATIENT NAME: DAISY ROCKWELL MEDICAL RECORD: [id number] :59 LOCATION:[facility] Gonzalez[facility]02 ADMISSION DATE:04/19/18 SURGEON: MARY HUGHES MD DATE OF OPERATION: 04/19/2018 PROCEDURES: 1. Left heart catheterization. 2. Selective coronary angiography. 3. Left ventriculogram. INDICATION: Chest pain compatible with angina, elevated troponin. PROCEDURE IN DETAIL: After informed consent was obtained and after a detailed description of the risks, benefits as well as alternative therapies, the patient elected to proceed with angiogram and heart catheterization. The right radial area was prepped and draped in normal sterile fashion. Right radial artery was cannulated via modified Seldinger technique with placement of 5-Lithuanian sheath. All catheters exchanged through this sheath. FINDINGS: The left ventriculogram was performed in standard 30-degree LORENZO view, reveals good cardiac wall motion throughout all segments. Overall ejection fraction estimated 60%. SELECTIVE CORONARY ANGIOGRAPHY: Left main, left anterior descending, left circumflex, right coronary artery are all smooth-walled vessels with no angiographic evidence of coronary artery disease. OVERALL IMPRESSION: 1. No angiographic evidence of coronary artery disease. 2. Normal left heart pressures. 3. Normal left ventricular systolic function. Symptomatology is secondary to demand ischemia from the tachycardia from the steroids. No cardiac intervention is necessary. TRANSINT:[id number] Voice Confirmation ID: [id number] DOCUMENT ID: [id number] MARY HUGHES MD at 1329 CC: [id number] DICTATION DATE: 04/19/18 1215 BOX GLUER: 04/19/18 1241 [place] [address]
--- NOTE | 2018-04-19 13:33 | NUR ---
4CC AIR REMOVED FROM TR BAND, NO BLEEDING NOTED. SANDWICH SERVED. HR NSR RATE 64, BP 120/72. DENIES PAIN OR NEEDS. CALL LIGHT IN REACH.
--- NOTE | 2018-04-19 13:50 | NUR ---
3 ADD'L CC OF AIR REMOVED FROM TR BAND. NO BLEEDING OR SWELLING NOTED. DRESSING REMAINS CDI. O2 REMOVED, 02 SAT 98 ON ROOM AIR. DENIES PAIN OR NEEDS.
--- NOTE | 2018-04-19 14:21 | NUR ---
DISCHARGE INSTRUCTIONS REVIEWED W PT AND HE VERBALIZED UNDERSTANDING. IV REMOVED W CATH INTACT. MONITORS REMOVED. PT UP TO DRESS FOR DISCHARGE.
--- NOTE | 2018-04-19 14:31 | NUR ---
TR BAND AND REMAINING AIR REMOVED. NO BLEEDING OR HEMATOMA NOTED. 2X2 AND TELFA DRESSING APPLIED. DISCHARGED TO PRIVATE VEHICLE VIA W/C.
== END 2018-04-19 14:30 | disposition home or self-care (01) ==
LOC: D.ER 22:35 → D.CLR 04-19 02:13 → OBSVTIME 04-19 02:13 → D.EDHOLD 04-19 02:13 → D.CLR 04-19 10:05
PROVIDERS: Family Medicine; ADMIT Internal Medicine Interventional Cardiology
DX: R00.0 Tachycardia, unspecified (principal); T38.0X5A Adverse effect of glucocorticoids and synthetic analogues, initial encounter; I24.8 Other forms of acute ischemic heart disease; R94.31 Abnormal electrocardiogram [ECG] [EKG]; E78.5 Hyperlipidemia, unspecified; I10 Essential (primary) hypertension

== ENCOUNTER 2018-10-18 08:20 | Observation (INO) | payer BC ==
[~2018-10-18] VITALS: Ht 177.8 cm; Wt 95.5 kg
--- NOTE | ~2018-10-18 | EC ---
PATIENT:DAISY ROCKWELL DATE OF SERVICE: 10/18/18 SEX: M MEDICAL RECORD: [id number] DATE OF : [birth year] LOCATION:D.M2 D.211 AGE OF PATIENT: 63 ADMISSION DATE: 10/18/18 REFERRING PHYSICIAN: INTERPRETING PHYSICIAN: MARY NINO MD ECHOCARDIOGRAM REPORT ECHO CHARGES 4 ECHO COMPLETE Date: 10/18/18 CLINICAL DIAGNOSIS: TIA VS CVA ECHOCARDIOGRAPHIC MEASUREMENTS (adult normal given) AC root (d.<3.7cm) 2.5 cm LV Septum d (<1.2 cm> 0.8 cm Valve Excursion 1.7 cm LV Septum (systole) 1.5 cm Left Atria (s.<4.0cm> 4.5 cm LVPW d(<1.2cm) 1.0 cm RV (d.<2.3cm) 3.2 cm LVPW (sytole) 1.5 cm LV diastole(<5.6CM) 5.4 cm MV E-F(>70mm/sec) cm LV systole 3.6 cm LVOT Diameter 2.0 cm MV exc.(>10mm) cm Est.ejection fraction (50-75%) % DOPPLER: LVIT cm/sec A 79 cm/sec E 72 cm/sec LA cm/sec RVSP 16.7 mmHg LVOT 88 cm/sec AOP1/2T m/s Asc. Ao 150 cm/sec RVOT 83 cm/sec RA cm/sec PA 87 cm/sec AV Gradient Peak 9.0 mmHg AV Mean 6.0 mmHg AV Area 1.6 cm MV Gradient Peak 4.0 mmHg MV Mean 1.2 mmHg MV Area cm COMMENTS: Rn Lpn Cna: Jami LYMAN Central Communications Specialist: 1 Dr. Nino TAPE# PACS Pericardial Effusion N DATE OF SERVICE: 10/18/2018 ECHOCARDIOGRAM DATE OF SERVICE: 10/18/2018 FINDINGS: 1. Left ventricular chamber size is within normal limits. Left ventricular systolic function is normal. Overall ejection fraction estimated at 55%. 2. Left atrium is enlarged at 4.5 cm. Right atrium and right ventricular ECHOCARDIOGRAM REPORT [id number] DAISY ROCKWELL chamber sizes are as well mildly dilated. 3. Valvular structures have normal structure and motion. 4. Doppler interrogation reveals only trace tricuspid regurgitation, no other valvular insufficiency or stenosis. Pulmonary systolic pressure is estimated at 17 mmHg. 5. No evidence of pericardial effusion or left ventricular thrombus. TRANSINT:[id number] Voice Confirmation ID: [id number] DOCUMENT ID: [id number] MARY NINO MD CC: [id number] DICTATION DATE: 10/19/18 1154 HOT PIPE GAUGER: 10/19/18 1209 ADM IN [facility] [address] [place] [address]
--- NOTE | ~2018-10-18 | CN ---
PATIENT NAME:DAISY ROCKWELL MEDICAL RECORD: [id number] : 59 LOCATION:D.M2 D.2119 ADMIT DATE: 10/18/18 ACCOUNT: [id number] CONSULTING PHYSICIAN: MARY HUGHES MD REFERRING PHYSICIAN: REYNOLD GRANT MD DATE OF CONSULTATION: 10/18/2018 ADMITTING DIAGNOSES: 1. Bradycardia. 2. History of supraventricular tachycardia. 3. Hypertension. 4. TIA symptomatology. HISTORY OF PRESENT ILLNESS: Mr. Rockwell presents with noncardiac TIA symptomatology. He was noted to be bradycardic; however, he has been bradycardic in our clinic; however, EKG we have heart rates in the 40s. He has a history of supraventricular tachycardia for which he is on metoprolol XL 25 mg a day. He has undergone cardiac catheterization within the past year. This was normal. He has since being on the metoprolol. He has had no further episodes of the supraventricular tachycardia. When he presented here, his heart rate was again in the 40s. His metoprolol has been held. His heart rates in the 50s now, he is on lisinopril, losartan for blood pressure elsewise. PHYSICAL EXAMINATION: GENERAL APPEARANCE: Well-nourished, well-developed, appears stated age. Level of distress, comfortable. PSYCHIATRIC: Mental status, alert, normal affect. Orientation, oriented to time, place and person. EYES: Lids and conjunctiva, noninjected. No discharge, no pallor. ENT: Lips, teeth, gums, normal dentition. Oropharynx, no cyanosis, no pallor. NECK: Carotid arteries, bilateral normal upstroke, no bruits, no thrills. JUGULAR VEINS: No jugular venous pressure or distention. CERVICAL LYMPH NODES: Nontender, nonenlarged. THYROID: Not enlarged. Nontender. No nodules. LUNGS: Respiratory effort, unlabored. CHEST: Normal curvature. No thoracic deformity. No chest wall tenderness. Percussion, resonant. Auscultation, clear. No wheezes, no rales, no rhonchi. CARDIOVASCULAR: Precordial exam, nondisplaced. No heaves or pericardial thrills. Rate and rhythm, regular. Heart sounds, normal S1, normal S2. No S3, no gallop, no rub. Systolic murmur, not heard. Diastolic murmur, not heard. EXTREMITIES: No cyanosis, no edema. Peripheral pulses, full and equal in all extremities, except as noted. No bruits appreciated. ABDOMEN: Soft, nondistended. Normal aorta. No bruit. Nontender. No masses. Liver, nontender, no hepatomegaly. Spleen, nontender, no splenomegaly. MUSCULOSKELETAL: No joint tenderness. No joint swelling. No erythema. NEUROLOGICAL: Normal gait, normal strength, normal tone. SKIN: Warm and dry. OVERALL IMPRESSION: Bradycardia. This is stable and unchanged from his baseline. Agree with him off the metoprolol. If he has any further supraventricular tachycardia, we have to place him back on the metoprolol and just except the sinus bradycardia. At this time, we will get an echocardiogram to rule out cardiac source of neurologic emboli. Otherwise, no other cardiac workup treatment is necessary. CONSULT REPORT [id number] DAISY ROCKWELL TRANSINT:[id number] Voice Confirmation ID: [id number] DOCUMENT ID: [id number] MARY HUGHES MD CC: [id number] DICTATION DATE: 10/18/181654 EMERGENCY DEPARTMENT PHYSICIAN: 10/18/181917 ADM IN [facility] [address] [id number]
--- NOTE | 2018-10-18 08:41 | NUR ---
FSBS= 92 MG/DL
[2018-10-18 08:46] VITALS: BP 171/89
--- NOTE | 2018-10-18 08:47 | NUR ---
URINE SPECIMEN OBTAINED, LABELED AT BS AND SENT TO LAB
--- NOTE | 2018-10-18 08:58 | NUR ---
TO CT VIA STRETCHER WITH SUPERINTENDENT DRIVERS
[2018-10-18 09:09] LABS: ALKALINE PHOSPHATASE 61 U/L (46-116); ALT (SGPT) 40 U/L (10-68); BILIRUBIN - TOTAL 1.33 mg/dL (0.2-1.3); CALC OSMOLALITY 280 mosm/kg (275-300); CALCIUM 8.8 mg/dL (8.5-10.1); CARBON DIOXIDE 29.9 mmol/L (21.0-32.0); CHLORIDE - SERUM 101 mmol/L (98-107); CREATININE - SERUM 0.9 mg/dL (0.6-1.3); GLUCOSE 111 mg/dL (74-106); INR 0.98 (0.85-1.17); POTASSIUM - SERUM 3.9 mmol/L (3.5-5.1); PROTEIN - SERUM 7.8 g/dL (6.4-8.2); PROTIME 12.5 SECONDS (11.6-15.0); SODIUM 139 mmol/L (136-145); UREA NITROGEN 18 mg/dL (7-18); eGFR NON AFRICAN AMERICAN > 90 mL/min (90-120)
[2018-10-18 09:10] LABS: APTT 32.1 SECONDS (22.8-39.4)
--- NOTE | 2018-10-18 09:15 | NUR ---
BP 156/88 - Dr Kenney gave verbal order not to give Hydralazine
[2018-10-18 09:18] LABS: EOSINOPHILS 2.4 % (0-7); HEMATOCRIT 44.8 % (42.0-54.0); IMMATURE GRANULOCYTES 0.3 % (0-5); LYMPHOCYTES 26.1 % (15-50); MCH 30.6 pg (26.0-34.0); MCHC 35.7 g/dL (31.0-37.0); MCV 85.7 fL (80.0-100.0); MEAN PLATELET VOLUME 9.7 fL (7.4-10.4); MONOCYTES 7.6 % (2-11); NEUTROPHILS 62.6 % (40-80); PLATELET COUNT 174 10x3/uL (130-400); RBC 5.23 10x6/uL (4.20-6.10); RDW 13.6 % (11.5-14.5); WBC 6.3 10x3/uL (4.8-10.8)
[2018-10-18 09:19] LABS: CKMB 0.8 U/L (0.0-3.6); CREATINE KINASE 89 UL (21-232); MAGNESIUM - SERUM 2.2 mg/dL (1.8-2.4); THYROID STIMULATING HORMONE 2.44 uIU/mL (0.36-3.74); TROPONIN-I < 0.017 ng/mL (0.000-0.060)
--- NOTE | 2018-10-18 09:23 | NUR ---
Patient reports he had right shoulder repair shoulder in LR early in September and has had a "slow recovery" from that procedure. Steri Strips are still covering incision - incision site surrounding steri strips appears clean, dry and intact with no s/s of infection present.
[2018-10-18 09:46] VITALS: BP 160/80
--- NOTE | 2018-10-18 10:22 | NUR ---
PT US COMPLETE
--- NOTE | 2018-10-18 10:28 | NUR ---
pt to mri
--- NOTE | 2018-10-18 11:03 | NUR ---
TO ROOM VIA WHEELCHAIR POST MRI. GLASSES ON. DENIES NEEDS AT THIS TIME. SALINE LOCK SEEN TO RIGHT HAND. ORANGE SWAB CAP PLACED ON IT. 5 STERI STRIPS SEEN TO RIGHT SHOULDER FROM RECENT SURGERY. DENIES ANY NUMBNESS OR TINGLING AT THIS TIME. WILL ADMIT.
[2018-10-18] MEDS ORDERED: ZESTRIL40 MG PO (11:18)
[2018-10-18 11:19] VITALS: BP 160/84; BMI 30.1
--- NOTE | 2018-10-18 11:24 | MORECARE ---
CASE MANAGEMENT DISCHARGE SUMMARY PATIENT: DAISY ROCKWELL RAY UNIT: [id number] ADM DATE: 10/18/18 AGE: 63 : 59 SEX: M ROOM/BED: D.1209 AUTHOR: NICOLAS DO PHYSICIAN: REFERRING PHYSICIAN: REYNOLD GRANT MD DATE OF SERVICE: 10/18/18 Discharge Plan Patient Name: DAISY ROCKWELL Facility: [facility]:[place] : 1955 Planned Disposition: Anticipated Discharge Date: Discharge Date: Expected LOS: Initial Reviewer: [email or web address] Initial Review Date: 10/18/2018 Generated: 10/18/18 12:23 pm Patient Name: DAISY ROCKWELL Page [id number] at 1124 All edits/amendments must be made on the electronic document DICTATION DATE: 10/18/18 112 RUNNER OUT: GASPER 10/18/18 1123 RPT#: [id number] DC DATE: STATUS: ADM IN [facility] [address] [place] [address] END OF REPORT
--- NOTE | 2018-10-18 11:31 | MORECARE ---
CASE MANAGEMENT DISCHARGE SUMMARY PATIENT: DAISY ROCKWELL RAY UNIT: [id number] ADM DATE: 10/18/18 AGE: 63 : 59 SEX: M ROOM/BED: D.1209 AUTHOR: NICOLAS DO PHYSICIAN: REFERRING PHYSICIAN: REYNOLD GRANT MD DATE OF SERVICE: 10/18/18 Discharge Plan Patient Name: DAISY ROCKWELL Facility: [facility]:[place] : 1955 Planned Disposition: Anticipated Discharge Date: Discharge Date: Expected LOS: Initial Reviewer: [email or web address] Initial Review Date: 10/18/2018 Generated: 10/18/18 12:31 pm DCPIA - Discharge Planning Initial Assessment Updated by [email or web address]: Hailee Owens on 10/18/18 11:24 am * Is the patient Alert and Oriented? Yes * PCP FARO * Pharmacy [facility] [address] * Preadmission Environment Home Alone * ADLs Independent * Equipment CPAP * List name and contact numbers for known caregivers / representatives who currently or will assist patient after discharge: MARIA TERESA MARTINEZ, SISTER, . * Additional services required to return to the preadmission environment? No * Can the patient safely return to the preadmission environment? Yes * Has this patient been hospitalized within the prior 30 days at any hospital? No Last DP export: 10/18/18 10:23 a Patient Name: DAISY ROCKWELL Page [phone] at 1131 All edits/amendments must be made on the electronic document DICTATION DATE: 10/18/18 1131 JUNIOR PROJECT COORDINATOR: GASPER 10/18/18 1131 RPT#: [id number] DC DATE: STATUS: ADM IN [facility] [address] [place] [address] END OF REPORT
[2018-10-18] MEDS ORDERED: PROZAC10 MG PO (11:34)
[2018-10-18] MEDS ORDERED: COZAAR100 MG PO (11:35)
--- NOTE | 2018-10-18 11:46 | MORECARE ---
CASE MANAGEMENT DISCHARGE SUMMARY PATIENT: DAISY ROCKWELL RAY UNIT: [id number] ADM DATE: 10/18/18 AGE: 63 : 59 SEX: M ROOM/BED: D.1209 AUTHOR: NICOLAS DO PHYSICIAN: REFERRING PHYSICIAN: REYNOLD GRANT MD DATE OF SERVICE: 10/18/18 Discharge Plan Patient Name: DAISY ROCKWELL Facility: [facility]:[place] : 1955 Planned Disposition: Anticipated Discharge Date: Discharge Date: Expected LOS: Initial Reviewer: [email or web address] Initial Review Date: 10/18/2018 Generated: 10/18/18 12:46 pm DCPIA - Discharge Planning Initial Assessment Updated by [email or web address]: Hailee Owens on 10/18/18 11:24 am * Is the patient Alert and Oriented? Yes * PCP FARO * Pharmacy [facility] [address] * Preadmission Environment Home Alone * ADLs Independent * Equipment CPAP * List name and contact numbers for known caregivers / representatives who currently or will assist patient after discharge: MARIA TERESA MARTINEZ, SISTER, . * Additional services required to return to the preadmission environment? No * Can the patient safely return to the preadmission environment? Yes * Has this patient been hospitalized within the prior 30 days at any hospital? No Last DP export: 10/18/18 10:31 a Patient Name: DAISY ROCKWELL Page [id number] at 1146 All edits/amendments must be made on the electronic document DICTATION DATE: 10/18/18 1146 MUSIC AUTOGRAPHER: GASPER 10/18/18 1146 RPT#: [id number] DC DATE: STATUS: ADM IN [facility] [address] [place] [address] END OF REPORT
--- NOTE | 2018-10-18 12:24 | NUR ---
CONNIE WITH MONITORS TO CALL AND TELL ME THAT PATIENT JUST HAD A RUN OF 5. I CALLED [facility] TO SEE ABOUT CARDIOLOGY CAONSULT. NEW ORDERS.
--- NOTE | 2018-10-18 14:19 | NUR ---
NO LUNCH TRAY, SANDWICH OFFERED.
--- NOTE | 2018-10-18 14:20 | NUR ---
WHILE PATIENT DOING RESP. TREATMENT, ON ROOM AIR SAT IS 83 %. PAST TREATMENT AND PLACED BACK ON 2L O2 JOANNE IS UP TO 99 %. PER R.T. AND MYSELF, PATIENT IS INSTRUCTED TO WEAR THE NASAL CANNULA AT THIS TIME.
[2018-10-18 15:36] VITALS: BP 138/83
[2018-10-18 15:43] VITALS: Ht 177.8 cm; Wt 95.5 kg
--- NOTE | 2018-10-18 16:02 | NUR ---
HR FINALLY UP TO 56, B/P IS 138/83. PAGE INTO [facility] TO SEE ABOUT GIVING LISINOPRIL, COZAAR, AND TOPROL. STATES THAT SHE WILL LOOK AT THEM AND ADJUST.
--- NOTE | 2018-10-18 16:07 | NUR ---
NEW ORDERS RECEIVED.
--- NOTE | 2018-10-18 16:52 | NUR ---
ECHO DONE AT BEDSIDE, DR HUGHES HERE TO SEE PATIENT.
--- NOTE | 2018-10-18 18:18 | NUR ---
RECEIVED CALL FROM SYLWIA SHARPTEMPLATE INSPECTOR TO MOVE PATIENT TO PCU, RM [phone]. WILL CALL REPORT.
--- NOTE | 2018-10-18 18:26 | NUR ---
REPORT CALLED TO MANNY VERDUGO RN WHO STATES THE ROOM IS STILL DIRTY. SHE IS TO CALL US WHEN IT IS READY AND WE WILL TRANSFER PER [facility].
--- NOTE | 2018-10-18 19:55 | NUR ---
PATIENT TRANSFERRED FROM [facility] TO 2118 VIA WHEELCHAIR. PATIENT IS ALERT AND ORIENTED, RESTING COMFORTABLY IN BED. RESPIRATIONS ARE EVEN AND UNLABORED. NO S/S OF DISTRESS. NO C/O PAIN. NEEDS MET. CALL LIGHT WITHIN REACH. WILL CPOC.
[2018-10-18 20:00] VITALS: BP 135/82
[2018-10-19] VITALS: BP 141/86
[2018-10-19 04:00] VITALS: BP 131/91
[2018-10-19 07:12] LABS: HEMATOCRIT 43.1 % (42.0-54.0); HEMOGLOBIN 15.2 g/dL (13.5-17.5); MCH 30.2 pg (26.0-34.0); MCHC 35.3 g/dL (31.0-37.0); MCV 85.7 fL (80.0-100.0); PLATELET COUNT 179 10x3/uL (130-400); RBC 5.03 10x6/uL (4.20-6.10); RDW 13.8 % (11.5-14.5); WBC 6.3 10x3/uL (4.8-10.8)
[2018-10-19 07:28] LABS: ALBUMIN 3.5 g/dL (3.4-5.0); ALKALINE PHOSPHATASE 52 U/L (46-116); ALT (SGPT) 39 U/L (10-68); BILIRUBIN - TOTAL 1.22 mg/dL (0.2-1.3); CALC OSMOLALITY 282 mosm/kg (275-300); CALCIUM 8.6 mg/dL (8.5-10.1); CARBON DIOXIDE 27.3 mmol/L (21.0-32.0); CHLORIDE - SERUM 103 mmol/L (98-107); CREATININE - SERUM 0.9 mg/dL (0.6-1.3); GLUCOSE 103 mg/dL (74-106); POTASSIUM - SERUM 3.6 mmol/L (3.5-5.1); SODIUM 141 mmol/L (136-145); UREA NITROGEN 19 mg/dL (7-18); eGFR NON AFRICAN AMERICAN > 90 mL/min (90-120)
[2018-10-19 08:52] LABS: EOSINOPHILS 2 % (0-7); LYMPHOCYTES 21 % (15-50); MONOCYTES 9 % (2-11); NEUTROPHILS 67 % (40-80); PLATELET ESTIMATE NORMAL; ROULEAUX OCC
[2018-10-19 09:55] VITALS: BP 178/94
--- NOTE | 2018-10-19 12:05 | NUR ---
C/O OF LEFT FACIAL AND ARM NUMBNESS. MILAGRO BLAIR NOTIFIED.
[2018-10-19] MEDS ORDERED: KLONOPIN0.5 MG PO (12:39)
[2018-10-19 12:53] VITALS: BP 161/101
--- NOTE | 2018-10-19 15:21 | NUR ---
IV AND TELEMETRY DCD. DC PLANS GIVEN. UNDERSTANDING VOICED. ESCORTED TO CAR BY W/C.
--- NOTE | 2018-10-20 08:25 | MORECARE ---
CASE MANAGEMENT DISCHARGE SUMMARY PATIENT: DAISY ROCKWELL RAY UNIT: [id number] ADM DATE: 10/18/18 AGE: 63 : 59 SEX: M ROOM/BED: D.2119 AUTHOR: NICOLAS DO PHYSICIAN: REFERRING PHYSICIAN: REYNOLD GRANT MD DATE OF SERVICE: 10/20/18 Discharge Plan Patient Name: DAISY ROCKWELL Facility: [facility]:[place] : 1955 Planned Disposition: Home Anticipated Discharge Date: 10/19/18 Discharge Date: 10/19/2018 Expected LOS: 1 Initial Reviewer: [email or web address] Initial Review Date: 10/18/2018 Generated: 10/20/18 9:25 am DCPIA - Discharge Planning Initial Assessment Updated by [email or web address]: Hailee Owens on 10/18/18 11:24 am * Is the patient Alert and Oriented? Yes * PCP DANNO * Pharmacy [facility] [address] * Preadmission Environment Home Alone * ADLs Independent * Equipment CPAP * List name and contact numbers for known caregivers / representatives who currently or will assist patient after discharge: MARIA TERESA MARTINEZ, SISTER, . * Additional services required to return to the preadmission environment? No * Can the patient safely return to the preadmission environment? Yes * Has this patient been hospitalized within the prior 30 days at any hospital? No Last DP export: 10/18/18 10:46 a Patient Name: DAISY ROCKWELL Page [id number] at 0825 All edits/amendments must be made on the electronic document DICTATION DATE: 10/20/18824 PETROLEUM INSPECTOR SUPERVISOR: GASPER 10/20/18824 RPT#: [id number] DC DATE:10/19/18 STATUS: DIS IN [address] [place] [address] END OF REPORT
== END 2018-10-19 15:22 | disposition home or self-care (01) ==
LOC: D.ER 08:20 → D.M2 09:50 → D.M3 09:50 → OBSVTIME 09:50 → D.M3 09:50 → D.ER 10:49 → D.M2 18:53
PROVIDERS: Family Medicine; ADMIT Internal Medicine Nephrology; ATTEND Internal Medicine Nephrology
DX: G45.9 Transient cerebral ischemic attack, unspecified (principal); I10 Essential (primary) hypertension; F41.9 Anxiety disorder, unspecified

== ENCOUNTER → 2019-09-19 10:13 | Outpatient (CLI) | payer BC ==
[2018-10-18 15:43] VITALS: BMI 30.1
[~2019-09-19 10:13] MED LIST changes: +COZAAR100 MG PO; +KLONOPIN0.5 MG PO; +PROZAC10 MG PO; +ZESTRIL40 MG PO
== END | disposition home or self-care (01) ==
LOC: D.CT 10:13
PROVIDERS: ATTEND Family Medicine
DX: I70.1 Atherosclerosis of renal artery (principal)